=== PATIENT | female | born 1970 | race Caucasian/White ===

== ENCOUNTER 2019-05-08 20:44 | Emergency (ER) | payer OTHER ==
[2019-05-08] MEDS: KETOROLAC 30 MG INJ IV (21:11)
[2019-05-08] MEDS: ONDANSETRON 4 MG INJ IV (21:11)
[2019-05-08] MEDS: morphine 2 MG INJ IV ×2 (21:12→21:58)
== END 2019-05-08 22:42 | disposition home or self-care (01) ==
LOC: E/R 20:44
DX: S52.501A Unspecified fracture of the lower end of right radius, initial encounter for closed fracture (principal); S40.211A Abrasion of right shoulder, initial encounter; W10.8XXA Fall (on) (from) other stairs and steps, initial encounter; Y92.9 Unspecified place or not applicable
CPT/HCPCS: 29125; 73030-RT; 73090-RT; 73110-RT; 81025; 96374; 96375; 96376; 99284-25